=== PATIENT | female | born 1950 | race Caucasian/White ===

== ENCOUNTER 2017-11-30 09:56 | Emergency (ER) | payer MEDICARE, BC ==
[2017-11-30] MEDS ORDERED: HYDROMORPHONE HCL 2 MG/ML VIAL IVP ONE (10:01)
--- NOTE | 2017-11-30 10:10 | Emergency Department Record ---
History of Present Illness - General Chief Complaint: Fall Injury Stated Complaint: FALL/SHOULDER INJURY Time Seen by Provider: 11/30/17 10:01 Source: Patient Mode of Arrival: Stretcher Limitations: No limitations - History of Present Illness Initial Comments: 67 yo female presents to ED for evaluation of right shoulder pain following a trip and fall this morning. Patient reports that she was walking a drop clothes at her home that is being painted resulting in the trip and fall. Patient denies other injury, did receive Fentanyl prior to arrival that slightly improved her pain symptoms. Patient reports a history of arthritis and HTN. MD Complaint: Fall Onset/Timin -: Hour(s) When Fall Occurred: Just prior to arrival Fall Witnessed: Yes, by family Place Fall Occurred: Home Loss of Consciousness: None Prolonged Down Time?: No Symptoms Prior to Fall: None Location - Extremities: Right: Shoulder Severity: Severe Quality: Aching - Rom Coma Scale Eye Response: (4) Open spontaneously Motor Response: (6) Obeys commands Verbal Response: (5) Oriented Rom Total: 15 - Related Data Allergies Allergy/AdvReac Type Severity Reaction Status Date / Time Penicillins AdvReac NAUSEA Verified 03/04/16 02:10 Travel Screening - Travel/Exposure Within Last 30 Days Have you traveled within the last 30 days?: No - Travel/Exposure Within Last Year Have you traveled outside the [place] in the last year?: No - Additonal Travel Details Have you been exposed to anyone with a communicable illness?: No Review of Systems Constitutional: Denies: Chills, Fever, Malaise, Night sweats Eyes: Denies: Eye discharge, Eye pain ENT: Denies: Congestion, Ear pain Respiratory: Denies: Cough, Dyspnea Cardiovascular: Denies: Chest pain, Dyspnea on exertion Endocrine: Denies: Fatigue, Heat or cold intolerance Gastrointestinal: Denies: Abdominal pain, Nausea, Vomiting Genitourinary: Denies: Incontinence, Retention Musculoskeletal: Reports: Arthralgia. Denies: Back pain, Gout, Joint swelling Skin: Denies: Bruising, Change in color Neurological: Denies: Abnormal gait, Confusion, Headache, Seizure Psychiatric: Denies: Anxiety Hematological/Lymphatic: Denies: Anemia, Blood Clots Past Medical History - SOCIAL HISTORY Smoking Status: Never smoker - RESPIRATORY Hx Respiratory Disorders: Yes Hx Bronchitis: Yes - CARDIOVASCULAR Hx Cardio Disorders: Yes Hx Abnormal EKG: Yes (left bundle branch block) Hx Hypertension: Yes (well controlled on meds) - NEURO Hx Neuro Disorders: No - GI Hx GI Disorders: Yes Hx Abdominal Pain: Yes Hx Nausea/Vomiting: Yes Hx Pancreatitis: Yes Comment:: hx of ecoli poisoning 6 years ago. micorscopic colitis no problems at prese - Hx Genitourinary Disorders: Yes Comment:: stress incontinence - ENDOCRINE Hx Endocrine Disorders: No - MUSCULOSKELETAL Hx Musculoskeletal Disorders: Yes Hx Arthritis: Yes (bilateral hands) Comment:: left shoulder rotator cuff surgery needed; carpal tunnel - PSYCH Hx Psych Problems: Yes Hx Depression: Yes Comment:: sees therapist regularly for depression symptoms - HEMATOLOGY/ONCOLOGY Hx Hematology/Oncology Disorders: No Family Medical History Any Significant Family History?: No Hx Heart Disease: Father *Heart Comment: heart attack Hx Kidney Disease: Father, Mother Hx Stroke: Mother *Stroke Comment: at age 88 Physical Exam - General General Appearance: Alert, Oriented x3, Cooperative, Moderate distress Limitations: No limitations - Head Head exam: Atraumatic, Normocephalic, Normal inspection Head exam detail: negative: Abrasion, Contusion, Stafford's sign, General tenderness, Hematoma, Laceration - Eye Eye exam: Normal appearance. negative: Conjunctival injection, Periorbital swelling, Periorbital tenderness, Scleral icterus - ENT Ear exam: negative: Auricular hematoma, Auricular trauma Nasal Exam: negative: Active bleeding, Discharge, Dried blood, Foreign body Mouth exam: negative: Drooling, Laceration, Muffled voice, Tongue elevation - Neck Neck exam: Normal inspection. negative: Meningismus, Tenderness - Respiratory Respiratory exam: Normal lung sounds bilaterally. negative: Rales, Respiratory distress, Rhonchi, Stridor - Cardiovascular Cardiovascular Exam: Regular rate, Normal rhythm, Normal heart sounds Peripheral Pulses: 3+: Radial (R) - GI/Abdominal GI/Abdominal exam: Soft. negative: Rebound, Rigid, Tenderness - Rectal Rectal exam: Deferred - exam: Deferred - Extremities Extremities exam: Tenderness, Other (TTP over the right proximal humorus, no pain over the elbow or wrist, strong distal radial pulse). negative: Calf tenderness, Pedal edema - Back Back exam: Denies: CVA tenderness (R), CVA tenderness (L) - Neurological Neurological exam: Alert, Normal gait, Oriented X3 - Psychiatric Psychiatric exam: Normal affect, Normal mood - Skin Skin exam: Normal color. negative: Abrasion Type of lesion: negative: abrasion Course Vital Signs 11/30/17 09:57 Pulse Rate 76 Respiratory 20 Rate Blood Pressure 159/87 Pulse Ox 100 - Reevaluation(s) Reevaluation #1: 11/30/17 10:35 Right shoulder: No obvious fracture, anterior/inferior dislocation appears present. Patient was updated on her radiology result, risks and benefits of conscious sedation for reduction was discussed and the patient is in agreement with the plan of care for sedation and reduction. Reevaluation #2: 11/30/17 11:03 Sedation completed, post-reduction films ordered. Reevaluation #3: 11/30/17 11:24 Right shoulder post-reduction: Satisfactory reduction of the right shoulder Patient is awake, alert, and answering questions. Patient will call family for a ride home at this time with instructions to follow-up with Dr. Rodriguez later this week. Reevaluation #4: 11/30/17 11:35 Patient reassessed, resting comfortably, alert, awake, and tolerating PO. Patient appears stable for discharge at this time with family members. Procedures - Orthopedic Joint Reduction Joint #1 Consent Obtained: Written consent Time Out Performed: Yes Side: Right Joint Reduction Location: Shoulder Analgesia: Procedural sedation Shoulder Technique Used (if applicable): Traction/counter-traction Post-Reduction Neuro Exam: Intact Post-Reduction Vascular Exam: Intact Post Reduction X-Ray Obtained: Yes Post Reduction X-Ray Results: Reduced Splint Applied: Yes Patient Tolerated Procedure: Good - Procedural Sedation Indications: fracture/dislocation redu ASA Class: II Mallampati Airway Score: 2 Preparation: alarm security or surveillance monitor applied, pulse oximeter, supplemental O2 applied, suction/airway equipment at bedside, IV secured Midazolam: IV Midazolam Dose: 2 IV Etomidate Dose (mgs): 6 Complications: hypoventilation Interventions: airway repositioned, assist by BVM Patient Tolerated Procedure: Good Sedation Start Date: 11/30/17 Sedation Start Time: 10:47 Sedation End Date: 11/30/17 Sedation End Time: 11:01 Disposition Disposition: Discharge Clinical Impression: Shoulder dislocation Qualifiers: Encounter type: initial encounter Laterality: right Qualified Code(s): S43.004A - Unspecified dislocation of right shoulder joint, initial encounter Disposition: Home, Self-Care Condition: (2) Stable Instructions: Shoulder Dislocation (ED) Additional Instructions: Return to ED if your symptoms worsen or if you have any concerns. Sling as directed. Follow-up with Dr. Rodriguez in the [facility] Wednesday. Referrals: JULIOCESAR RODRIGUEZ [DOCTOR OF OSTEOPATH] - [facility] [Provider Group] Forms: Patient Portal Access Time of Disposition: 11:07 Quality - Quality Measures Quality Measures: N/A - Blood Pressure Screening Does Patient Have Any of the Following: No Blood Pressure Classification: Pre-Hypertensive BP Reading Systolic Measurement: 159 Diastolic Measurement: 87 Screening for High Blood Pressure: < Pre-Hypertensive BP, F/U Documented > [ [id number]] Pre-Hypertensive Follow-up Interventions: Referral to alternative/primary care provider.
[2017-11-30] MEDS ORDERED: MIDAZOLAM HCL 2MG/2ML VIAL IV ONE (10:36)
[2017-11-30] MEDS ORDERED: ETOMIDATE 20MG/10ML VIAL IVP ONE (10:36)
--- NOTE | 2017-12-01 07:53 | RADIOLOGY REPORT ---
EXAM: RIGHT SHOULDER HISTORY: PATIENT TRIPPED AND FELL ONTO RIGHT SHOULDER TODAY. TECHNIQUE: AP and lateral views of the right shoulder were obtained. Comparison: None. Encounter: Initial. FINDINGS: There is an anterior subcoracoid dislocation of the humeral head. No obvious associated fracture is seen, but post reduction series including internal and external rotation views as well as an axillary view is suggested to evaluate for any possible associated impaction fracture in particular. Degenerative change at the acromioclavicular joint. IMPRESSION: 1. ANTERIOR SUBCORACOID DISLOCATION OF THE HUMERAL HEAD. 2. DEGENERATIVE CHANGE AT THE ACROMIOCLAVICULAR JOINT. JOB NUMBER: [id number] MTDD
--- NOTE | 2017-12-01 07:56 | RADIOLOGY REPORT ---
EXAM: POST REDUCTION RIGHT SHOULDER SERIES HISTORY: POST REDUCTION EVALUATION RIGHT SHOULDER DISLOCATION. TECHNIQUE: AP and lateral views of the right shoulder labeled post reduction were obtained. Comparison: Two view right shoulder from earlier today. Encounter: Initial. FINDINGS: Since the prior exam there has been reduction in the previously seen anterior subcoracoid dislocation. No definite associated fracture is seen. Degenerative change at the acromioclavicular joint. IMPRESSION: REDUCTION IN THE PREVIOUSLY SEEN ANTERIOR SUBCORACOID DISLOCATION. JOB NUMBER: [id number] [facility]
== END 2017-11-30 12:32 | disposition home or self-care (01) ==
LOC: ER 09:56
DX: S43.014A Anterior dislocation of right humerus, initial encounter (principal); W01.198A Fall on same level from slipping, tripping and stumbling with subsequent striking against other object, initial encounter; Y93.H3 Activity, building and construction; Y92.009 Unspecified place in unspecified non-institutional (private) residence as the place of occurrence of the external cause; I10 Essential (primary) hypertension
CPT/HCPCS: 23650; 96374; 96375; 99284

== ENCOUNTER 2019-04-22 11:22 | Emergency (ER) | payer MEDICARE, BC ==
[2019-04-22] MEDS ORDERED: 0.9 % SODIUM CHLORIDE 1000ML 1,000 ML IV ONE (11:42)
[2019-04-22] MEDS ORDERED: ASPIRIN 81 MG CHEWABLE TABLET PO ONE (11:42)
--- NOTE | 2019-04-22 11:51 | Emergency Department Record ---
History of Present Illness - General Chief Complaint: Palpitations Stated Complaint: SOB, PALPITATIONS Time Seen by Provider: 04/22/19 11:25 Source: Patient, RN notes reviewed Mode of Arrival: Ambulatory - History of Present Illness Initial Comments: sob and dizzy and it started this am when she wake up. upon arrival by car she has a heart rate of 30 and in complete heart block. Patient requests to go to [facility] Onset/Timin -: Hour(s) - Related Data Allergies Allergy/AdvReac Type Severity Reaction Status Date / Time Penicillins AdvReac NAUSEA Verified 04/22/19 11:45 Travel Screening - Travel/Exposure Within Last 30 Days Have you traveled within the last 30 days?: No - Travel/Exposure Within Last Year Have you traveled outside the [place] in the last year?: No - Additonal Travel Details Have you been exposed to anyone with a communicable illness?: No - Travel Symptoms Symptom Screening: None Review of Systems Reviewed: No additional complaints except as noted below Constitutional: Reports: As per HPI. Denies: Chills, Fever, Malaise, Night sweats, Weakness, Weight change Eyes: Reports: As per HPI. Denies: Eye discharge, Eye pain, Photophobia, Vision change ENT: Reports: As per HPI. Denies: Congestion, Dental pain, Ear pain, Epistaxis, Hearing loss, Throat pain Respiratory: Reports: As per HPI, Dyspnea. Denies: Cough, Hemoptysis, Stridor, Wheezes Cardiovascular: Reports: As per HPI. Denies: Arrhythmia, Chest pain, Dyspnea on exertion, Edema, Murmurs, Orthopnea, Palpitations, Paroxysmal nocturnal dyspnea, Rheumatic Fever, Syncope Endocrine: Reports: As per HPI. Denies: Fatigue, Heat or cold intolerance, Polydipsia, Polyuria Gastrointestinal: Reports: As per HPI. Denies: Abdominal pain, Constipation, Diarrhea, Hematemesis, Hematochezia, Melena, Nausea, Vomiting Genitourinary: Reports: As per HPI. Denies: Abnormal menses, Discharge, Dyspareunia, Dysuria, Frequency, Hematuria, Incontinence, Retention, Urgency Musculoskeletal: Reports: As per HPI. Denies: Arthralgia, Back pain, Gout, Joint swelling, Myalgia, Neck pain Skin: Reports: As per HPI. Denies: Bruising, Change in color, Change in hair/nails, Lesions, Pruritus, Rash Neurological: Reports: As per HPI. Denies: Abnormal gait, Confusion, Headache, Numbness, Paresthesias, Seizure, Tingling, Tremors, Vertigo, Weakness Psychiatric: Reports: As per HPI. Denies: Anxiety, Auditory hallucinations, Depression, Homicidal thoughts, Suicidal thoughts, Visual hallucinations Hematological/Lymphatic: Reports: As per HPI. Denies: Anemia, Blood Clots, Easy bleeding, Easy bruising, Swollen glands Past Medical History - SOCIAL HISTORY Smoking Status: Never smoker Alcohol Use: Occasional Drug Use: None - RESPIRATORY Hx Respiratory Disorders: Yes Hx Bronchitis: Yes - CARDIOVASCULAR Hx Cardio Disorders: Yes Hx Abnormal EKG: Yes (left bundle branch block) Hx Hypertension: Yes (well controlled on meds) Hx Palpitations: Yes - NEURO Hx Neuro Disorders: No - GI Hx GI Disorders: Yes Hx Abdominal Pain: Yes Hx Nausea/Vomiting: Yes Hx Pancreatitis: Yes Comment:: hx of ecoli poisoning 6 years ago. micorscopic colitis no problems at prese - Hx Genitourinary Disorders: Yes Comment:: stress incontinence - ENDOCRINE Hx Endocrine Disorders: No - MUSCULOSKELETAL Hx Musculoskeletal Disorders: Yes Hx Arthritis: Yes (bilateral hands) Comment:: left shoulder rotator cuff surgery needed; carpal tunnel - PSYCH Hx Psych Problems: Yes Hx Depression: Yes Comment:: sees therapist regularly for depression symptoms - HEMATOLOGY/ONCOLOGY Hx Hematology/Oncology Disorders: No Family Medical History Any Significant Family History?: No Hx Heart Disease: Father *Heart Comment: heart attack Hx Kidney Disease: Father, Mother Hx Stroke: Mother *Stroke Comment: at age 88 Physical Exam - General General Appearance: Alert, Oriented x3, Cooperative, No acute distress - Head Head exam: Normal inspection - Eye Eye exam: Normal appearance, PERRL Pupils: Normal accommodation - ENT ENT exam: Normal exam, Mucous membranes moist, Normal external ear exam, Normal orophraynx, TM's normal bilaterally Ear exam: Normal external inspection. negative: External canal tenderness Nasal Exam: Normal inspection. negative: Discharge, Sinus tenderness Mouth exam: Normal external inspection, Tongue normal Teeth exam: Normal inspection. negative: Dental caries Throat exam: Normal inspection. negative: Tonsillar erythema, Tonsillar exudate - Neck Neck exam: Normal inspection, Full ROM. negative: Tenderness - Respiratory Respiratory exam: Normal lung sounds bilaterally. negative: Respiratory distress - Cardiovascular Cardiovascular Exam: Bradycardia - GI/Abdominal GI/Abdominal exam: Soft, Normal bowel sounds. negative: Tenderness - Rectal Rectal exam: Deferred - exam: Deferred - Extremities Extremities exam: Normal inspection, Full ROM, Normal capillary refill. negative: Tenderness - Back Back exam: Reports: Normal inspection, Full ROM. Denies: Muscle spasm, Rash noted, Tenderness - Neurological Neurological exam: Alert, Normal gait, Oriented X3, Reflexes normal - Psychiatric Psychiatric exam: Normal affect, Normal mood - Skin Skin exam: Dry, Intact, Normal color, Warm Course Vital Signs 04/22/19 11:29 Temperature 97.5 F L Pulse Rate 32 L Respiratory 18 Rate Blood Pressure 147/69 Pulse Ox 99 - Reevaluation(s) Reevaluation #1: discussed case with Dr. Johnson and will transfer via ambulance. 04/22/19 11:51 04/22/19 12:23 04/22/19 12:[address] Johnson 04/22/19 12:36 Reevaluation #2: Patient's BP is holding nicely and she asymptomatic on the ED cart 04/22/19 12:27 Medical Decision Making - Data Complexity MDM Data: Labs Ordered and/or Reviewed, X-Ray Ordered and/or Reviewed (chest xray negative), EKG Ordered and/or Reviewed (complete heart block) - Lab Data Result diagrams: 04/22/19 11:40 04/22/19 11:40 Disposition Clinical Impression: Complete heart block Disposition: Acute Care Hospital Transfer Condition: (1) Good Forms: Patient Portal Access Quality - Quality Measures Quality Measures: N/A - Blood Pressure Screening Does Patient Have Any of the Following: No, Active Dx of HTN Blood Pressure Classification: Hypertensive Reading Systolic Measurement: 147 Diastolic Measurement: 69 Screening for High Blood Pressure: Patient Exclusion, Hx of HTN [G9744]
[2019-04-22 11:54] LABS: ABSOLUTE NEUTROPHIL COUNT 3.55; EOS % 1.7 % (0-6); GRAN % 51.7 % (47-80); HEMATOCRIT 43.6 % (35.0-47.0); HEMOGLOBIN 14.4 gm/dl (11.6-16.0); LYMPH % 37.6 % (16-45); MEAN CELL VOLUME 89.7 fl (81-97); MEAN CORPUSCULAR HEMOGLOBIN 29.6 pg (27-33); MEAN PLATELET VOLUME 9.9 fl (7.4-10.4); PLATELET COUNT 168 K/uL (130-400); RED BLOOD COUNT 4.86 M/uL (3.80-5.40); RED CELL DISTRIBUTION WIDTH 12.8 % (11.5-14.5); WHITE BLOOD COUNT W/O DIFF 6.9 K/uL (4.2-12.2)
[2019-04-22 12:08] LABS: BLOOD UREA NITROGEN 25 mg/dL (8-23); EST GLOMERULAR FILTRATION RATE 58 mL/min
[2019-04-22 12:10] LABS: GLUCOSE,RANDOM 141 mg/dL (74-109)
--- NOTE | 2019-04-25 12:13 | RADIOLOGY REPORT ---
STUDY: Portable chest. CLINICAL HISTORY: Episode of palpitations and shortness of breath upon waking this morning. TECHNIQUE: A single mobile semi-erect view of the chest is obtained. COMPARISON: Two-view chest radiographic examination dated 07/20/2016. FINDINGS: The heart projects borderline enlarged. No pulmonary venous hypertension is seen. The lungs and pleural spaces are grossly clear. Mild S- shaped curvature of the thoracic spine. No acute osseous abnormality. IMPRESSION: No radiographic evidence of acute cardiopulmonary disease. MTDD
== END 2019-04-22 13:23 | disposition short-term general hospital (02) ==
LOC: ER 11:22
DX: I44.2 Atrioventricular block, complete (principal); R06.02 Shortness of breath; R42 Dizziness and giddiness; I10 Essential (primary) hypertension
CPT/HCPCS: 71045; 80048; 84484; 85025; 85730; 93005; 93010; 99285